=== PATIENT | female | born 1935 | race Caucasian/White ===

== ENCOUNTER 2017-05-31 11:13 | Emergency (ER) | payer OTHER, BC ==
[2017-05-31 11:26] VITALS: BP 164/83; PULSE 91; TEMP 99
[2017-05-31] MEDS ORDERED: IBUPROFEN 400 MG TABLET (FP) PO ONE ×2 (11:44→11:50)
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
== END 2017-05-31 15:18 | disposition home or self-care (01) ==
LOC: FER 11:13
DX: M54.5 Low back pain (principal); V43.52XA Car driver injured in collision with other type car in traffic accident, initial encounter; Y93.89 Activity, other specified; Y92.410 Unspecified street and highway as the place of occurrence of the external cause; I73.00 Raynaud's syndrome without gangrene; I10 Essential (primary) hypertension; J45.909 Unspecified asthma, uncomplicated
CPT/HCPCS: 72100-TC-FY; 99282-25